=== PATIENT | female | born 1950 | race Caucasian/White ===

== ENCOUNTER → 2016-12-31 | Outpatient (CLI) | payer OTHER ==
--- NOTE | 2016-12-31 17:33 | DX ---
Lumbar Spine, Two Views 11:31 a.m. Indication: Postlaminectomy syndrome. Evaluate fusion hardware. Comparison: Lumbar spine radiographs dated September 23, 2016 and July 30, [address] of the lumbar spine dated April 13, 2016 Technique: Upright AP and lateral views. Findings: The posterior fusion construct extending from L2 to S1 remains well seated. No perihardwar e fracture or lucency has developed. The construct consists of dual posterior rods and bilateral vidal spedicular screws at the L2, L3, L4, L5, and S1 levels. Radiopaque markers in the L2-L3, L3-L4, L4-L5 and L5-S1 interbody spaces are unchanged in configuration. Sclerosis of the L5 vertebral body and no ndisplaced anterior cortical fracture fragment are unchanged. No fracture or bone lesion has develope d. The L2 and L3 vertebral bodies appear to be partially osseous fused. Impression: 1. Well seated posterior fusion construct extending from L2 to S1. 2. Minimal bony fusion at the L2-L3 level.
== END ==
LOC: FIMAGING 11:23
PROVIDERS: ATTEND Orthopaedic Surgery Orthopaedic Surgery of the Spine
DX: M96.1 Postlaminectomy syndrome, not elsewhere classified (principal); Z98.1 Arthrodesis status

== ENCOUNTER 2017-01-30 11:51 | Day surgery (SDC) | payer OTHER ==
[~2017-01-30 11:51] MED LIST: BUPIVACAINE/EPI 0.25% 30 ML SDV ONE; CLINDAMYCIN 600 MG/DEXTROSE 50 ML IV ONE; EPINEPHrine 30 MG/30 ML MDV ONE
[2017-01-30] MEDS ORDERED: CLINDAMYCIN 600 MG/DEXTROSE/50 ML BAG IV ONE (12:45)
[2017-01-30] MEDS ORDERED: LIDOCAINE 2% 5 ML SDV ONE (13:13)
[2017-01-30] MEDS ORDERED: GLYCOPYRROLATE 0.2 MG/1 ML VIAL ONE (13:14)
[2017-01-30] MEDS ORDERED: PROPOFOL 200 MG/20 ML VIAL ONE (13:15)
[2017-01-30] MEDS ORDERED: fentaNYL 250 MCG/5 ML INJ ONE (13:15)
[2017-01-30] MEDS ORDERED: CEFAZOLIN 2 GM/DEXTROSE/100 ML BAG IV ONE (13:17)
[2017-01-30] MEDS ORDERED: MIDAZOLAM 2 MG/2 ML VIAL ONE (13:27)
--- NOTE | 2017-01-30 13:57 | GOP ---
DATE OF OPERATION: 01/30/2017 SURGEON: Elpidio Mejia MD STENCIL MAKER: Keke Peters PA-C ANESTHESIA: General plus interscalene block, by Dr. Hanks. PREOPERATIVE DIAGNOSIS: 1. Left shoulder rotator cuff tear. 2. Left shoulder subacromial impingement syndrome with bursitis. 3. Left shoulder degenerative labral tearing and synovitis. 4. Left shoulder proximal biceps tendinopathy and partial thickness tear. POSTOPERATIVE DIAGNOSIS: 1. Left shoulder rotator cuff tear. 2. Left shoulder subacromial impingement syndrome with bursitis. 3. Left shoulder degenerative labral tearing, synovitis and SLAP tear. 4. Left shoulder proximal biceps tendinopathy and partial thickness tear. PROCEDURE PERFORMED: 1. Left shoulder arthroscopic double row rotator cuff repair. 2. Left shoulder arthroscopic subacromial decompression and bursectomy. 3. Left shoulder arthroscopic debridement SSC, labrum and subacromial space with complete bursectomy, intra-articular synovectomy, chondroplasty humeral head. 4. Left shoulder scope-assisted biceps tenotomy. FINDINGS: EUA showed no signs of glenohumeral instability. ROM essentially symmetric to the opposite side with FE to approximately 170, ER 60, IR to hip supine, with abduction to 90 degrees, ER of 90, IR to approximately 45. Arthroscopic findings: Full-thickness rotator cuff tear (2x1 cm), intra- articular synovitis, degenerative labral fraying, SLAP and HH chondromalacia. No loose bodies. The pouch was clear. Subscapularis was intact with some degenerative fraying. A full-thickness cuff tear extended up into the subacromial space with contiguous anatomic regions. There was subacromial spurring and bursitis within the subacromial space. SPECIMENS: None. ESTIMATED BLOOD LOSS: Minimal. INDICATIONS: A 66-year-old female, who was pulled off her deck by her dog in mid November 2016. She suffered a left shoulder injury and had difficulty with pain and weakness, especially reaching away from body and overhead. Preoperative MRI was confirmatory for a full-thickness cuff tear. Additional findings were found as listed above. After discussing treatment options, and attempting conservative care, the patient elected to proceed with surgery, after understanding the risks, benefits, and alternatives. She provided a signed witnessed informed consent, which is placed in her chart. All of her questions were answered prior to surgery. DESCRIPTION OF PROCEDURE: The patient was identified in the preoperative holding area and her left shoulder was signed and designated as the operative site. The patient was confirmed to be in bilateral lower extremity ELIDA hose and SCDs. She was treated with 2 g IV prophylactic cefazolin after a test dose , given childhood allergy with rash and hives. She was taken back to the operating room, placed supine on the OR table. The anesthesia service provided an interscalene block prior to surgery. Both shoulders underwent EUA. Axillary roll was placed under the right shoulder with right upper extremity forward flexed on a well-padded arm board. Stern bag was used to position the patient in lateral decubitus position with the left shoulder prepped and draped , using the usual sterile manner and with 10 pounds of abduction and 10 pounds of longitudinal traction, using standard padded star sleeve. Posterolateral and anterior scope portals were established with a #11 blade. Complete diagnostic arthroscopy was performed with findings listed above. Initial focus was on the intra-articular space and debridement of the labral fraying as well as chondroplasty was performed. The rotator interval Synovectomy was performed as well as synovitis around the superior labral recess , and near the rotator cuff tear superiorly and laterally. The articular side of the rotator cuff tear was then further debrided with a full-radius shaver. Working through the anterior portal, the biceps tendon was divided at its origin site, and allowed to retract down distally into the proximal bicipital groove. Once all work was completed with the intra-articular space, the scope was withdrawn posteriorly, and advanced into the subacromial space. Working through the lateral portal, extensive bursectomy was performed. The ArthroCare wand was used to maintain meticulous hemostasis. The undersurface of the acromion was debrided of all soft tissues, using the ablation function of the ArthroCare wand. A standard subacromial decompression was performed working posteriorly, using a cutting block as well as lateral technique. Once appropriate subacromial decompression and acromioplasty was completed, the rotator cuff repair was performed. Working through the lateral portal, the cuff tendon was debrided back to a stable and healthy-appearing level. All small fragments of torn tendon were resected. The greater tuberosity footprint was prepared with ablation function of the ArthroCare wand, as well as decortication using the full-radius shaver and high-speed forward. A nice bleeding bed was established for augment repair. ConMed 1.3 mm Y-knot suture anchors were then placed in the appropriate position at the articular margin of the proximal humerus. These were then passed across the rotator cuff tendon in a horizontal mattress manner , and tied down with excellent apposition of the rotator cuff, down to its [place] footprint. Next, using the ConMed PopLok anchors, a lateral row was placed and a standard transosseous suture equivalent was performed in order to increase the overall footprint, for the rotator cuff repair. All excess sutures were cut laterally and then were withdrawn from the shoulder. The shoulder was taken through range of motion and the repair was inspected. A very nice repair was achieved. Once all work was completed within the shoulder , the pump pressure was dropped and hemostasis was confirmed throughout. All excess saline was evacuated from the shoulder. The portals were closed with interrupted 3-0 nylon sutures. Sterile postoperative surgical dressings were applied. The left upper extremity was placed in a shoulder abduction immobilizer. The patient was returned to the supine position. The anesthesia service took over to wake the patient up. TOURNIQUET TIME: None. DRAINS: None. IMPLANTS: ConMed 1.3 mm Y-knot suture anchors x 2; medial row. 3.5 mm ConMed PopLok Peak anchors x 2; lateral row. COMPLICATIONS: None. DISPOSITION: The patient was extubated and transferred to PACU in stable condition. /[id number]/MODL MTDD
== END 2017-01-30 17:55 | disposition home or self-care (01) ==
LOC: FSGY 11:51
PROVIDERS: ATTEND Orthopaedic Surgery
DX: S46.012A Strain of muscle(s) and tendon(s) of the rotator cuff of left shoulder, initial encounter (principal); S43.432A Superior glenoid labrum lesion of left shoulder, initial encounter; M75.42 Impingement syndrome of left shoulder; M75.52 Bursitis of left shoulder; M75.22 Bicipital tendinitis, left shoulder; W54.8XXA Other contact with dog, initial encounter; Y92.009 Unspecified place in unspecified non-institutional (private) residence as the place of occurrence of the external cause
CPT/HCPCS: C1713; J0690; J2250; J2704; J3010

== ENCOUNTER → 2017-02-06 | Outpatient (CLI) | payer OTHER | LOC: FIMAGING 14:21 | DX: Z03.89 Encounter for observation for other suspected diseases and conditions ruled out (principal) | CPT/HCPCS: G0206 ==

== ENCOUNTER → 2017-04-08 | Outpatient (CLI) | payer OTHER | LOC: FIMAGING 13:04 | PROVIDERS: ATTEND Orthopaedic Surgery Orthopaedic Surgery of the Spine | DX: Z09 Encounter for follow-up examination after completed treatment for conditions other than malignant neoplasm (principal); Z98.1 Arthrodesis status ==

== ENCOUNTER → 2017-06-27 | Outpatient (CLI) | payer OTHER, MEDICARE | LOC: FIMAGING 09:42 | PROVIDERS: ATTEND Internal Medicine | DX: Z12.31 Encounter for screening mammogram for malignant neoplasm of breast (principal) | CPT/HCPCS: G0202 ==

== ENCOUNTER → 2018-12-26 | Outpatient (CLI) | payer OTHER, MEDICARE | LOC: BRMIMAGING 12:42 | PROVIDERS: ATTEND Internal Medicine | DX: Z12.31 Encounter for screening mammogram for malignant neoplasm of breast (principal) ==

== ENCOUNTER → 2019-05-27 | Outpatient (CLI) | payer OTHER, MEDICARE | LOC: BRMIMAGING 13:55 ==